=== PATIENT | male | born 1985 | race Caucasian/White ===

== ENCOUNTER 2017-11-25 22:55 | Emergency (ER) | payer OTHER ==
[2017-11-26] MEDS: BACITRACIN 0.9 GM OINT TOP (00:42)
[2017-11-26] MEDS: DIPHTH/TET/ACEL PERTUSS (ADULT) 0.5 ML VIAL IM* (00:43)
== END 2017-11-26 00:58 | disposition home or self-care (01) ==
LOC: FTE 22:55
DX: T81.4XXA Infection following a procedure, initial encounter (principal); F17.210 Nicotine dependence, cigarettes, uncomplicated; Y82.8 Other medical devices associated with adverse incidents; Z23 Encounter for immunization
CPT/HCPCS: 90471; 90715; 99284-25